=== PATIENT | male | born 1990 | race Caucasian/White ===

== ENCOUNTER 2023-10-13 13:01 | Emergency (ER) | payer SELFPAY ==
[~2023-10-13] VITALS: Ht 180.3 cm; Wt 81.6 kg
[2023-10-13 13:15] VITALS: PULSE 110; RESP 19; TEMP 98.2; O2SAT 98
[2023-10-13] MEDS ORDERED: LEVOFLOXACIN750 MG PO (13:32)
[2023-10-13] MEDS ORDERED: DOXYCYCLINE HY100 MG PO (13:33)
== END 2023-10-13 13:43 | disposition home or self-care (01) ==
LOC: ER 13:13
DX: T24.492A Corrosion of unspecified degree of multiple sites of left lower limb, except ankle and foot, initial encounter (principal); T24.491A Corrosion of unspecified degree of multiple sites of right lower limb, except ankle and foot, initial encounter
CPT/HCPCS: 99284